=== PATIENT | female | born 1960 | race Caucasian/White ===

== ENCOUNTER 2019-09-30 22:06 | Emergency (ER) | payer MEDICARE, MEDICAID ==
[~2019-09-30] VITALS: Ht 152.4 cm; Wt 50.0 kg
[2019-09-30 22:15] VITALS: BP 120/78
--- NOTE | 2019-09-30 23:20 | NUR ---
sart nurse arrival room set up for sart exam
--- NOTE | 2019-09-30 23:40 | NUR ---
call placed to officer evy from [email or web address] [[email or web address]] for authorization information and case information, one safe place at bedside.
--- NOTE | 2019-09-30 23:55 | NUR ---
retreived conservator information emil leslie [phone] cell [phone] from patient caregiver
--- NOTE | 2019-10-01 | NUR ---
LEFT MESSAGE FOR CONSERVATOR TO CALL BACK TO GO OVER CONSENTS
--- NOTE | 2019-10-01 00:15 | NUR ---
RECEIVED CALL BACK FROM [facility] PT CONSERVATOR REVIEWED PROCEDURE FOR EXAMINATION AND POTENTIAL NEED FOR SEDATION PER PATIENT CORRECTION NURSE, PT CONSERVATOR DECLINES SART EXAMINATION AT THIS TIME.
--- NOTE | 2019-10-01 00:25 | NUR ---
CALL PLACED TO OFFICER ROSSANA TO INFORM HIM THE CONSERVATOR DECLINED THE EXAM.
== END 2019-10-01 00:59 | disposition home or self-care (01) ==
LOC: ER 22:07
DX: Z00.8 Encounter for other general examination (principal)
CPT/HCPCS: 99281

== ENCOUNTER 2021-09-07 12:30 | Emergency (ER) | payer MEDICARE, MEDICAID ==
[~2021-09-07] VITALS: Ht 152.4 cm; Wt 54.1 kg
[2021-09-07 12:38] VITALS: BP 154/111
[2021-09-07] MEDS ORDERED: SULF1TAB49 PO ×5 (14:07→17:12)
== END 2021-09-07 14:24 | disposition home or self-care (01) ==
LOC: ER 12:31
DX: L03.032 Cellulitis of left toe (principal); G80.9 Cerebral palsy, unspecified; K21.9 Gastro-esophageal reflux disease without esophagitis; M19.90 Unspecified osteoarthritis, unspecified site; M81.0 Age-related osteoporosis without current pathological fracture; F84.0 Autistic disorder; Z79.899 Other long term (current) drug therapy
CPT/HCPCS: 99284

== ENCOUNTER 2022-08-30 16:00 | Emergency (ER) | payer MEDICARE, MEDICAID ==
[~2022-08-30] VITALS: Ht 154.9 cm; Wt 54.1 kg
[~2022-08-30 16:00] MED LIST: ACET-1131 PO; ALEN70TA19 PO; ASCO500C17 PO; ATOR10TA PO; CHOL400T57 PO; CRAN450T9 PO; DOCU100C40 PO; KEP500T PO; LACT10SO32 NG; LACT1CAP55 PO; LACT1CAP65 PO; METF-436 PO; METO50TA16 PO; OMEG-5 PO; PAPA1TAB10 PO; POLY119P2 PO; PSYL575P22 PO; QUET25TA PO; ROBDML PO; SELE207S8 TP; SENN1TAB61 PO
[2022-08-30 20:11] LABS: BASOPHILS % (AUTO) 0.5 % (0-1); EOSINOPHILS # (AUTO) 0.2 X10'3 (0-0.9); EOSINOPHILS % (AUTO) 2.8 % (0-6); HEMATOCRIT 43.5 % (35.0-45.0); HEMOGLOBIN 14.8 g/dl (12.0-16.0); MEAN CORPUSCULAR HEMOGLOBIN 32.3 PG (27.0-31.0); MEAN CORPUSCULAR HGB CONC 34.1 g/dL (33.0-36.5); MEAN CORPUSCULAR VOLUME 94.8 FL (78-98); MONOCYTES # (AUTO) 0.5 X10'3 (0-0.9); MONOCYTES % (AUTO) 6.3 % (2-12); NEUTROPHILS # (AUTO) 4.1 X10'3 (1.8-7.7); NEUTROPHILS % (AUTO) 52.4 % (42-75); PLATELET COUNT 231 X10'3 (140-440); RED BLOOD COUNT 4.59 X10'6 (4.20-5.60); RED CELL DISTRIBUTION WIDTH 12.8 % (11.5-14.5); WHITE BLOOD COUNT 7.8 X10'3 (4.5-11.0)
[2022-08-30 20:21] LABS: ALANINE AMINOTRANSFERASE 35 U/L (12-78); ALBUMIN 4.3 G/DL (3.4-5.0); ALKALINE PHOSPHATASE 72 IU/L (46-116); ANION GAP 10 (8-16); ASPARTATE AMINO TRANSFERASE 28 U/L (10-37); BILIRUBIN,TOTAL 0.7 MG/DL (0.1-1.0); BLOOD UREA NITROGEN 10 MG/DL (7-18); BUN/CREATININE RATIO 11.5 (10.0-20.0); CALCIUM 10.2 MG/DL (8.5-10.1); CHLORIDE 103 MMOL/L (99-107); CREATININE 0.87 MG/DL (0.40-0.90); GLUCOSE 120 MG/DL (70-104); LIPASE 212 U/L (73-393); POTASSIUM 4.5 MMOL/L (3.5-5.1); SODIUM 138 MMOL/L (135-145); TOTAL CARBON DIOXIDE 25.1 MMOL/L (24-32); TOTAL PROTEIN 8.8 G/DL (6.4-8.2); eGFR 66 ML/MIN
[2022-08-30 22:40] VITALS: BP 137/98
== END 2022-08-31 01:05 | disposition home or self-care (01) ==
LOC: ER 16:01
DX: K59.00 Constipation, unspecified (principal); K21.9 Gastro-esophageal reflux disease without esophagitis; F41.9 Anxiety disorder, unspecified; Z88.8 Allergy status to other drugs, medicaments and biological substances; Z79.899 Other long term (current) drug therapy; Z79.1 Long term (current) use of non-steroidal anti-inflammatories (NSAID); Z79.2 Long term (current) use of antibiotics
CPT/HCPCS: 36415; 74018; 74176; 80053; 83690; 85025; 99285

== ENCOUNTER 2024-07-14 10:56 | Emergency (ER) | payer MEDICARE, MEDICAID ==
[~2024-07-14] VITALS: Ht 165.1 cm; Wt 53.6 kg
[~2024-07-14 10:56] MED LIST changes: -LACT10SO32 NG; +LACT10SO78 NG
[2024-07-14 11:03] VITALS: TEMP 96.9
[2024-07-14 11:57] VITALS: BP 120/85; PULSE 75; RESP 15; O2SAT 94
== END 2024-07-14 12:04 | disposition home or self-care (01) ==
LOC: ER 10:56
DX: R05.9 Cough, unspecified (principal); K21.9 Gastro-esophageal reflux disease without esophagitis; M19.90 Unspecified osteoarthritis, unspecified site; F41.9 Anxiety disorder, unspecified; Z88.8 Allergy status to other drugs, medicaments and biological substances; Z79.84 Long term (current) use of oral hypoglycemic drugs; Z79.899 Other long term (current) drug therapy
CPT/HCPCS: 71045; 99283; A6449